=== PATIENT | female | born 1970 | race Caucasian/White ===

== ENCOUNTER 2023-12-13 09:56 | Emergency (ER) | payer BC, OTHER ==
[2023-12-13] MEDS ORDERED: Lidocaine 1% w/Epinephrine 1:100K 20 ML VIAL ONE (10:05)
[2023-12-13] MEDS ORDERED: Bacitracin 1 PK ONE (10:23)
== END 2023-12-13 10:33 | disposition home or self-care (01) ==
LOC: NAV ERS 09:56
DX: S81.811A Laceration without foreign body, right lower leg, initial encounter (principal); W26.8XXA Contact with other sharp object(s), not elsewhere classified, initial encounter
CPT/HCPCS: 12002; 99283